=== PATIENT | female | born 1950 | race Caucasian/White ===

== ENCOUNTER → 2017-05-14 | Outpatient (CLI) | payer MEDICARE, OTHER ==
[2017-05-14] MEDS: GADOBUTROL 10 MMOL/10 ML VIAL IV (16:35)
== END | disposition home or self-care (01) ==
LOC: KCIC US 13:32
DX: K76.9 Liver disease, unspecified (principal); E04.1 Nontoxic single thyroid nodule; M41.86 Other forms of scoliosis, lumbar region
CPT/HCPCS: 74183; 76536; A9585

== ENCOUNTER → 2017-08-09 | Outpatient (CLI) | payer MEDICARE, OTHER ==
[2017-08-09] MEDS: GADOBUTROL 7.5 MMOL/7.5 ML VIAL IV (15:56)
== END | disposition home or self-care (01) ==
LOC: KCIC MRI 14:26
DX: D17.71 Benign lipomatous neoplasm of kidney (principal)
CPT/HCPCS: 74183; 82565; A9585